=== PATIENT | female | born 1965 | race Caucasian/White ===

== ENCOUNTER 2020-06-20 09:26 | Outpatient (REF) | payer OTHER, SELFPAY ==
--- NOTE | 2020-06-20 09:31 | MM_ITS ---
EXAMINATION: MM SCREENING DIGITAL BREAST TOMOSYNTHESIS, BILATERAL CLINICAL INFORMATION: Screening. Asymptomatic. The lifetime risk of breast cancer based on the Tyrer-Cuzick Model is 7%. COMPARISON: Mammography: 06/11/2019, 05/31/2018 TECHNIQUE: Digital breast tomosynthesis is performed in both the craniocaudal and mediolateral oblique views along with computer-aided detection (CAD). Synthesized 2D images are generated from the tomosynthesis. Additional exaggerated right CC view is provided. FINDINGS: There are scattered areas of fibroglandular density (ACR BI-RADS breast composition Category b). There are no significant masses, abnormal calcifications, or other abnormalities. The axilla and skin contours are unremarkable. No significant changes from prior studies. MM/MM tomosynthesis screening BI IMPRESSION: No mammographic evidence of malignancy. ASSESSMENT: BI-RADS 1: Negative RECOMMENDATION: Routine annual mammography screening. This patient's information was entered into a reminder system with a target due date for their next mammogram.
== END 2020-06-20 09:27 | disposition home or self-care (01) ==
LOC: HO.MAMMO 09:26
PROVIDERS: PCP Internal Medicine; Visit Provider Internal Medicine
DX: Z12.31 Encounter for screening mammogram for malignant neoplasm of breast (principal)
CPT/HCPCS: 77063; 77067

== ENCOUNTER 2020-08-21 10:10 | Emergency (ER) | payer OTHER, SELFPAY ==
--- NOTE | 2020-08-21 11:10 | ECG_ITS ---
Test Reason : CHEST PRESSURE Blood Pressure : / mmHG Vent. Rate : 060 BPM Atrial Rate : 060 BPM P-R Int : 196 ms QRS Dur : 090 ms QT Int : 442 ms P-R-T Axes : 070 058 065 degrees QTc Int : 442 ms Normal sinus rhythm Possible Left atrial enlargement Borderline ECG When compared with ECG of 13-MAY-2018 13:54, No significant change was found Referred By: Marily Lindsey Electronically Signed By:YASMINE OSEGUERA MD
--- NOTE | 2020-08-21 11:11 | XR_ITS ---
EXAMINATION: XR CHEST CLINICAL INFORMATION: Chest pain COMPARISON: January 09, 2018 TECHNIQUE: AP portable view of the chest was obtained. FINDINGS: No significant abnormality is noted involving the heart, lungs, mediastinum, bony thorax or soft tissues. XR/XR chest 1V IMPRESSION: No acute disease.
--- NOTE | 2020-08-21 11:13 | ED.URI ---
HPI - URI/Sore Throat General Chief Complaint: Upper Respiratory Symptoms Stated Complaint: covid symptoms Time Seen by Provider: 08/21/20 10:58 Source: patient Mode of arrival: ambulatory Limitations: no limitations History of Present Illness HPI Narrative: 54-yo female with past medical history of hypothyroidism, PTSD, anxiety here with complaints of chest heaviness for the last 24 hours. She tells me for the last 7 days she has had runny nose and headache and malaise. She has had no cough. She has had some chills and tactile temps which are intermittent. No cough or shortness of breath or leg pain or swelling. Chest heaviness which is constant worsened with deep breathing. MD elicited complaint: rhinorrhea Onset (ago): day(s) Consistency: intermittent Severity: mild Able to tolerate fluids by mouth: Yes Exacerbating factors: nothing Relieving factors: nothing Associated symptoms: chills (tactile temps), headache and chest pain Treatments prior to arrival: none Related Data Allergies Allergy/AdvReac Type Severity Reaction Status Date / Time blue dye [BLUE DYE] Allergy Unknown BURNING Unverified 04/24/20 16:12 EYE LIDS, TINGLING LIPS lamotrigine [LAMOTRIGINE] Allergy Unknown RASH Unverified 04/24/20 16:12 Latex Gloves Allergy Unknown Uncoded 12/10/16 00:00 Review of Systems Review of Systems: Yes all other systems are reviewed and are negative Constitutional: Constitutional: Reports no additional constitutional complaints, Denies body ache(s), Denies chills, Denies fever(s), Reports headache(s) and Denies weakness Eyes: Eyes: Reports no additional eye complaints and Denies change in vision ENT: Reports system reviewed and no additional complaints, except as documented, Denies dizziness, Reports headache(s), Denies nasal congestion, Reports nasal discharge and Denies neck pain Cardiovascular: Cardiovascular: Reports no additional cardiovascular complaints, Reports chest pain, Denies leg edema and Denies dyspnea Respiratory: Respiratory: Reports no additional respiratory complaints, Denies cough and Denies dyspnea Gastrointestinal: Gastrointestinal: Reports no additional gastrointestinal complaints, Denies abdominal pain, Denies diarrhea, Denies nausea and Denies vomiting Genitourinary: Genitourinary: Reports no additional female genitourinary complaints and Denies urinary incontinence Musculoskeletal: Musculoskeletal: Reports no additional musculoskeletal complaints, Denies back pain, Denies arthralgias, Denies joint swelling, Denies neck pain, Denies numbness and Denies tingling Integumentary/Breasts: Skin/Breast: Reports system reviewed and no additional complaints, except as docu and Denies rash Neurologic: Reports system reviewed and no additional complaints, except as documented, Denies Abnormal speech present, Denies dizziness, Reports headache(s), Denies numbness, Denies tingling and Denies weakness PMFSH Past Medical History Attestation statement: The following information was validated with the patient. Source: old records reviewed and nursing notes reviewed Social History Social History Alcohol intake: never Smoked in Last 30 Days: No Use of substances other than those prescribed or required for medical reasons: No Advance Directives: No Advance Directives Information Provided: No Physical Exam Vital Signs: Vital Signs: Last Vital Signs Temp 98.4 F 08/21/20 13:17 Pulse 54 08/21/20 13:17 Resp 22 H 08/21/20 13:17 BP 124/82 08/21/20 13:17 Pulse Ox 100 08/21/20 13:17 Body Mass Index 24.0 Const: General: cooperative, healthy appearing, comfortable and no acute distress Orientation/consciousness: patient oriented x3 Limitations: no limitations HENMT: Head: Yes normal to inspection Ears: hearing grossly normal bilaterally General nose exam: Normal external nose present Face and sinus: Yes normal facial exam Mouth: Normal oral and palatal mucosa present Throat: Yes posterior oropharynx normal Eyes: General: appearance normal, both eyes and all related structures Pupils: Equal, round and reactive pupils present Neck: Neck: Yes normal visual inspection Chest: Other: Central chest tender to palpate. Worsened with deep breathing, movement Chest palpation & inspection: normal inspection of the chest Resp: Effort & Inspection: normal respiratory effort Auscultation: clear to auscultation bilaterally Cardio: Rate: regular rate Rhythm: regular rhythm Peripheral pulses: Peripheral pulses 2+ throughout GI: Inspection: Yes normal to inspection Palpation (GI): Soft to palpation and nontender Auscultation: normal bowel sounds Back/Spine/Pelvis: Thoracic/Lumbar Spine: thoracic and lumbar spine normal to inspection Skin: General skin exam: no rashes or lesions noted Neuro: General: patient oriented x3, no focal motor deficits and normal sensation to monofilament Cranial nerves: Yes Equal, round and reactive pupils present Cognition (Neuro): normal cognition Speech: No Abnormal speech present Gait exam (Neuro): Normal gait present Motor exam (neuro): 5/5 motor strength present throughout Extrem: General: Yes normal to inspection Course Course Course Narrative: 54-year-old female here with rhinorrhea, headache x1 week now with chest tightness and heaviness for the last 24 hours. On exam the pain is worsened with deep breathing, movement and palpation. No cough or shortness of breath. Stable vital signs. Will check EKG, chest x-ray, labs including troponin and COVID testing. 1250-labs including troponin unremarkable. EKG shows no new changes. Chest x-ray shows no abnormality. D-dimer elevated will check CTA to r/o PE. 1500-CTA shows no PE. No evidence of aortic aneurysm. A few scattered nonspecific pulmonary nodules. Centrally more the right upper lobe and some mild atelectasis. Discussed findings with the patient. She was given a copy of her report to take home. She is feeling improved on discharge. Likely viral syndrome. Reviewed worrisome signs and symptoms and when to return to the emergency department. Comfortable discharge home. MDM - URI/Sore Throat MDM Narrative Medical decision making narrative: ACS, pna, pe viral syndrome, MS pain Less likely ACS with atypical symptoms, symptoms greater than 24 hours, EKG with no ischemic changes, negative troponin. Less likely pneumonia or PE with negative CTA. Medical Records Attestation: I reviewed the patient's medical records. Lab Data Attestation: I reviewed the patient's lab results. Result diagrams: 08/21/20 11:25 08/21/20 11:25 Labs: Lab Results 08/21/20 08/21/20 08/21/20 Range/Units 11:25 11:25 11:25 WBC 5.8 (4.8-10.8) X10*3/uL RBC 3.69 L (4.20-5.50) X10*6/uL Hgb 12.4 (12.0-16.0) g/dl Hct 36.7 L (37-47) % MCV 99.5 H (80-98) fL MCH 33.6 H (27.0-33.0) pg MCHC 33.8 (31.0-35.0) g/dl RDW 13.2 (11.0-16.0) % Plt Count 223 (160-400) X10*3/uL MPV 9.9 (9.4-12.3) fL Immature Gran % (Auto) 0.2 (0.0-0.4) % Neut % (Auto) 60.0 (45-73) % Lymph % (Auto) 34.1 (20-40) % [place] % (Auto) 4.3 (2-11) % Eos % (Auto) 0.9 (0-4) % Baso % (Auto) 0.5 (0-2) % Lymph # (Auto) 2.0 (1.2-4.9) X10*3/uL [place] # (Auto) 0.3 (0.1-1.2) X10*3/uL Eos # (Auto) 0.1 (0.0-0.4) X10*3/uL Baso # (Auto) 0.0 (0.0-0.2) X10*3/uL Abs Immat Gran (auto) 0.01 (0.00-0.03) X10*3/uL Absolute Neuts (auto) 3.5 (2.0-8.3) X10*3/uL Absolute Nucleated RBC 0.000 (0.0-0.012) X10*3/uL Nucleated RBC % (auto) 0.0 (0.0-0.2) /100WBC PT (10.8-13.0) SEC INR (0.9-1.1) D-Dimer NG/ML Sodium 139 (135-145) mmol/L Potassium 4.0 (3.3-5.1) mmol/l Chloride 103 (96-108) mmol/L Carbon Dioxide 30 H (22-29) mmol/L Anion Gap 10 L (12-20) BUN 27 H (9-16) mg/dL Creatinine 0.76 (0.5-1.4) mg/dL Estim Creat Clear Calc 73.0 Estimated GFR > 60 Random Glucose 90 (60-115) mg/dL Calcium 9.0 (8.4-10.2) mg/dL Magnesium 2.4 (1.6-2.6) mg/dL Total Bilirubin 0.3 (0.0-1.0) mg/dL Direct Bilirubin < 0.2 (0.0-0.5) mg/dL AST 23 (5-31) U/L ALT 21 (0-31) U/L Alkaline Phosphatase 51 (39-117) U/L Troponin I High Sens < 3.5 (<3.5-17.0) ng/L Total Protein 6.6 (6.5-8.0) g/dL Albumin 4.1 (3.5-5.0) g/dL COVID-19 ([facility]ILAN) (Negative) COVID-19 Clin Com 08/21/20 08/21/20 Range/Units 11:25 11:25 WBC (4.8-10.8) X10*3/uL RBC (4.20-5.50) X10*6/uL Hgb (12.0-16.0) g/dl Hct (37-47) % MCV (80-98) fL MCH (27.0-33.0) pg MCHC (31.0-35.0) g/dl RDW (11.0-16.0) % Plt Count (160-400) X10*3/uL MPV (9.4-12.3) fL Immature Gran % (Auto) (0.0-0.4) % Neut % (Auto) (45-73) % Lymph % (Auto) (20-40) % [place] % (Auto) (2-11) % Eos % (Auto) (0-4) % Baso % (Auto) (0-2) % Lymph # (Auto) (1.2-4.9) X10*3/uL [place] # (Auto) (0.1-1.2) X10*3/uL Eos # (Auto) (0.0-0.4) X10*3/uL Baso # (Auto) (0.0-0.2) X10*3/uL Abs Immat Gran (auto) (0.00-0.03) X10*3/uL Absolute Neuts (auto) (2.0-8.3) X10*3/uL Absolute Nucleated RBC (0.0-0.012) X10*3/uL Nucleated RBC % (auto) (0.0-0.2) /100WBC PT 11.7 (10.8-13.0) SEC INR 1.0 (0.9-1.1) D-Dimer 297 NG/ML Sodium (135-145) mmol/L Potassium (3.3-5.1) mmol/l Chloride (96-108) mmol/L Carbon Dioxide (22-29) mmol/L Anion Gap (12-20) BUN (9-16) mg/dL Creatinine (0.5-1.4) mg/dL Estim Creat Clear Calc Estimated GFR Random Glucose (60-115) mg/dL Calcium (8.4-10.2) mg/dL Magnesium (1.6-2.6) mg/dL Total Bilirubin (0.0-1.0) mg/dL Direct Bilirubin (0.0-0.5) mg/dL AST (5-31) U/L ALT (0-31) U/L Alkaline Phosphatase (39-117) U/L Troponin I High Sens (<3.5-17.0) ng/L Total Protein (6.5-8.0) g/dL Albumin (3.5-5.0) g/dL COVID-19 ([facility]ILAN) Negative (Negative) COVID-19 Clin Com See Note Imaging Data Chest x-ray: Attestation: I personally reviewed and interpreted this imaging study as follows: Radiologist's impression: [place] [id number] XRay Report Signed Patient: Sage Zhang#: [id number] : 1965Acct:[id number] Age/Sex: 54 / FADM Date: 08/21/20 Loc: .ED Attending Dr: Ordering Physician: MAGALY LESTER NP Date of Service: 08/21/20 Procedure(s): XR chest 1V Accession Number(s): [id number] cc: MAGALY LESTER NP~ EXAMINATION: XR CHEST CLINICAL INFORMATION: Chest pain COMPARISON: January 09, 2018 TECHNIQUE: AP portable view of the chest was obtained. FINDINGS: No significant abnormality is noted involving the heart, lungs, mediastinum, bony thorax or soft tissues. XR/XR chest 1V IMPRESSION: No acute disease. CTA chest: Attestation: I personally reviewed and interpreted this imaging study as follows: Radiologist's impression: EXAMINATION: CT ANGIOGRAM OF THE CHEST WITH AND WITHOUT CONTRAST (CT PULMONARY ANGIOGRAM FOR PE) CLINICAL INFORMATION: Reason for Exam SOB, CP, elevated d dimer, r/o pe COMPARISON: None TECHNIQUE: Prior to contrast administration, noncontrast localization images were obtained. Subsequently, multidetector volumetric imaging was performed from the thoracic inlet to below the diaphragms following the administration of 80 mL Omnipaque 350 intravenous contrast. No contrast reaction reported Sagittal, coronal, and MIP oblique sagittal reformatted images were obtained on the CT workstation, uploaded to PACS, and reviewed. This CT examination was performed using dose optimization techniques as appropriate, variously including the following: *Automated exposure control *Adjustment of mA and/or kV according to patient size (this includes techniques or standardized protocols for targeted exams where dose is matched to indication/reason for exam; i.e. extremities or head) *Use of iterative reconstruction technique Total exam dose-length product 240 mGy-cm FINDINGS: QUALITY OF STUDY/CONTRAST BOLUS: Satisfactory. PULMONARY ARTERIES: No central or segmental pulmonary emboli. THORACIC AORTA: No aneurysm or dissection. LUNG: The lungs are well-expanded without acute pneumonic process. There are a few scattered pulmonary nodules. A 3 mm nodule right upper lobe axial image 24/5, 2 nodule right upper lobe posterior segment image 16/5 3 minute nodule right upper lobe axial image 18/5 and several 2 mm nodules right upper lobe axial image 17/5. There is dependent bibasilar patchy haziness likely atelectasis. PLEURA: No pleural effusion or pneumothorax. MEDIASTINUM: The heart size and the great vessels are normal caliber. Central trachea and the bronchi widely patent. The thyroid lobes are symmetrical and normal. No evidence of septal bowing or right heart strain. CHEST WALL/AXILLA: No axillary or internal mammary lymphadenopathy. OSSEOUS STRUCTURES: No lytic or sclerotic process seen. There is mild ventral spondylosis. UPPER ABDOMEN: Unremarkable. No reflux of contrast into the hepatic veins to suggest elevated right heart pressures. CT/CT angio chest PE protocol IMPRESSION: No evidence of PE. No evidence of aortic aneurysm. Lungs are expanded with a few scattered nonspecific pulmonary nodules essentially more the right upper lobe. Mild patchy haziness in both lung bases likely atelectasis or underlying inflammatory changes. No abnormal mediastinal exit lymphadenopathy. VTE: Negative. ECG Data Attestation: I personally reviewed and interpreted this ECG as follows: ECG interpretation date: 08/21/20 ECG interpretation time: 11:17 Interpretation: Normal sinus rhythm with a rate of 60, normal CA, normal QRS, normal QT. Q-wave noted in leads V1 V2 and V3 which is unchanged from previous May 2018 Discharge Plan Discharge Clinical Impression: Viral infection Patient Disposition: Home, Self-Care Instructions: Viral Syndrome (ED) Additional Instructions: Your CT shows several pulmonary nodules. You were given a copy of this report. Will refer you to pulmonology to follow up Increase fluids, rest Get plenty of rest Referrals: Jose Cruz Avery MD [Physician] - 2 days Interventions: ED Discharge Assessment Last Done: 08/21/20 15:32 Discharge Date/Time: 08/21/20 15:33
[2020-08-21 11:17] VITALS: BP 115/92; PULSE 56; RESP 16; TEMP 36.8; O2SAT 100; BMI 24.0
[2020-08-21 11:28] VITALS: PULSE 60; O2SAT 100
[2020-08-21 11:29] LABS: MANUAL DIFF FLAG NO
[2020-08-21 11:34] LABS: Basophils Percent Auto 0.5 % (0-2); Eosinophils Absolute Auto 0.1 X10*3/uL (0.0-0.4); Eosinophils Percent Auto 0.9 % (0-4); Hematocrit 36.7 % (37-47); Hemoglobin 12.4 g/dl (12.0-16.0); Imm Gran Abs Auto 0.01 X10*3/uL (0.00-0.03); Imm Gran Pct Auto 0.2 % (0.0-0.4); Lymphocytes Percent Auto 34.1 % (20-40); Mean Corpuscular HGB Conc 33.8 g/dl (31.0-35.0); Mean Corpuscular Hemoglobin 33.6 pg (27.0-33.0); Mean Corpuscular Volume 99.5 fL (80-98); Mean Platelet Volume 9.9 fL (9.4-12.3); Monocytes Absolute Auto 0.3 X10*3/uL (0.1-1.2); Monocytes Percent Auto 4.3 % (2-11); Neutrophils Absolute Auto 3.5 X10*3/uL (2.0-8.3); Platelet Count 223 X10*3/uL (160-400); Red Blood Count 3.69 X10*6/uL (4.20-5.50); Red Cell Distribution Width 13.2 % (11.0-16.0); White Blood Count 5.8 X10*3/uL (4.8-10.8)
[2020-08-21 11:39] LABS: Prothrombin Time 11.7 SEC (10.8-13.0)
[2020-08-21 11:59] LABS: COVID-19 Test Negative (Negative); IDNOW Serial# 9DD0AD1C
[2020-08-21 12:05] LABS: Alanine Aminotransferase 21 U/L (0-31); Albumin Level 4.1 g/dL (3.5-5.0); Alkaline Phosphatase 51 U/L (39-117); Anion Gap 10 (12-20); Aspartate Amino Transferase 23 U/L (5-31); Bilirubin Direct < 0.2 mg/dL (0.0-0.5); Bilirubin Total 0.3 mg/dL (0.0-1.0); Blood Urea Nitrogen 27 mg/dL (9-16); Carbon Dioxide 30 mmol/L (22-29); Chloride 103 mmol/L (96-108); Estimated Glomerular Filt Rate > 60; Glucose Random 90 mg/dL (60-115); Magnesium 2.4 mg/dL (1.6-2.6); Sodium 139 mmol/L (135-145); Total Protein 6.6 g/dL (6.5-8.0)
[2020-08-21 12:10] LABS: Troponin-I High Sensitivity < 3.5 ng/L (<3.5-17.0)
[2020-08-21 12:28] LABS: D Dimer 297 NG/ML
--- NOTE | 2020-08-21 12:52 | CT_ITS ---
EXAMINATION: CT ANGIOGRAM OF THE CHEST WITH AND WITHOUT CONTRAST (CT PULMONARY ANGIOGRAM FOR PE) CLINICAL INFORMATION: Reason for Exam SOB, CP, elevated d dimer, r/o pe COMPARISON: None TECHNIQUE: Prior to contrast administration, noncontrast localization images were obtained. Subsequently, multidetector volumetric imaging was performed from the thoracic inlet to below the diaphragms following the administration of 80 mL Omnipaque 350 intravenous contrast. No contrast reaction reported Sagittal, coronal, and MIP oblique sagittal reformatted images were obtained on the CT workstation, uploaded to PACS, and reviewed. This CT examination was performed using dose optimization techniques as appropriate, variously including the following: *Automated exposure control *Adjustment of mA and/or kV according to patient size (this includes techniques or standardized protocols for targeted exams where dose is matched to indication/reason for exam; i.e. extremities or head) *Use of iterative reconstruction technique Total exam dose-length product 240 mGy-cm FINDINGS: QUALITY OF STUDY/CONTRAST BOLUS: Satisfactory. PULMONARY ARTERIES: No central or segmental pulmonary emboli. THORACIC AORTA: No aneurysm or dissection. LUNG: The lungs are well-expanded without acute pneumonic process. There are a few scattered pulmonary nodules. A 3 mm nodule right upper lobe axial image 24/5, 2 nodule right upper lobe posterior segment image 16/5 3 minute nodule right upper lobe axial image 18/5 and several 2 mm nodules right upper lobe axial image 17/5. There is dependent bibasilar patchy haziness likely atelectasis. PLEURA: No pleural effusion or pneumothorax. MEDIASTINUM: The heart size and the great vessels are normal caliber. Central trachea and the bronchi widely patent. The thyroid lobes are symmetrical and normal. No evidence of septal bowing or right heart strain. CHEST WALL/AXILLA: No axillary or internal mammary lymphadenopathy. OSSEOUS STRUCTURES: No lytic or sclerotic process seen. There is mild ventral spondylosis. UPPER ABDOMEN: Unremarkable. No reflux of contrast into the hepatic veins to suggest elevated right heart pressures. CT/CT angio chest PE protocol IMPRESSION: No evidence of PE. No evidence of aortic aneurysm. Lungs are expanded with a few scattered nonspecific pulmonary nodules essentially more the right upper lobe. Mild patchy haziness in both lung bases likely atelectasis or underlying inflammatory changes. No abnormal mediastinal exit lymphadenopathy. VTE: Negative.
[2020-08-21 13:17] VITALS: BP 124/82; PULSE 54; RESP 22; TEMP 36.9; O2SAT 100
[2020-08-21] MEDS: iohexoL 350 MG/ML 100 ML INFUS..BTL IV (13:58)
== END 2020-08-21 15:33 | disposition home or self-care (01) ==
PROVIDERS: Nurse Practitioner Family; Emergency Provider Emergency Medicine Emergency Medical Services; PCP Obstetrics & Gynecology
DX: B34.9 Viral infection, unspecified (principal); R51.9 Headache, unspecified; R07.9 Chest pain, unspecified; Z20.822 Contact with and (suspected) exposure to COVID-19
CPT/HCPCS: 36415; 71045; 71275; 80048; 80076; 83735; 84484; 85025; 85379; 85610; 87635; 93005; 99284; 99285; Q9967

== ENCOUNTER → 2020-09-01 14:53 | Outpatient (BNVA) | payer OTHER, SELFPAY | PROVIDERS: PCP Internal Medicine; Visit Provider Internal Medicine | DX: F19.10 Other psychoactive substance abuse, uncomplicated (principal); R91.1 Solitary pulmonary nodule; F17.200 Nicotine dependence, unspecified, uncomplicated | CPT/HCPCS: 99202 ==

== ENCOUNTER 2021-06-29 11:42 | Outpatient (REF) | payer OTHER, SELFPAY ==
--- NOTE | ~2021-06-29 | MM_ITS ---
EXAMINATION: MM SCREENING DIGITAL BREAST TOMOSYNTHESIS, BILATERAL CLINICAL INFORMATION: Screening. Asymptomatic. The lifetime risk of breast cancer based on the Tyrer-Cuzick Model is 7%. COMPARISON: Mammography: 06/20/2020, 06/11/2019, 05/31/2018 TECHNIQUE: Digital breast tomosynthesis is performed in both the craniocaudal and mediolateral oblique views along with computer-aided detection (CAD). Synthesized 2D images are generated from the tomosynthesis. Additional exaggerated left CC view is provided. FINDINGS: There are scattered areas of fibroglandular density (ACR BI-RADS breast composition Category b). There are no significant masses, abnormal calcifications, or other abnormalities. MM/MM tomosynthesis screening BI IMPRESSION: No mammographic evidence of malignancy. ASSESSMENT: BI-RADS 1: Negative RECOMMENDATION: Routine annual mammography screening. This patient's information was entered into a reminder system with a target due date for their next mammogram.
== END 2021-06-29 11:43 | disposition home or self-care (01) ==
LOC: HO.MAMMO 11:42
PROVIDERS: PCP Family Medicine; Visit Provider Family Medicine
DX: Z12.31 Encounter for screening mammogram for malignant neoplasm of breast (principal)
CPT/HCPCS: 77063; 77067

== ENCOUNTER → 2021-10-28 09:28 | Outpatient (BNVA) | payer OTHER, SELFPAY | PROVIDERS: PCP Internal Medicine; Visit Provider Internal Medicine | DX: R91.1 Solitary pulmonary nodule (principal); F17.200 Nicotine dependence, unspecified, uncomplicated; F19.10 Other psychoactive substance abuse, uncomplicated | CPT/HCPCS: 99212 ==

== ENCOUNTER 2023-01-21 16:49 | Emergency (ER) | payer OTHER, SELFPAY ==
--- NOTE | ~2023-01-21 | XR_ITS ---
EXAMINATION: XR ABDOMEN COMPLETE CLINICAL INDICATION: Reason for Exam eval stool burden COMPARISON: KUB 09/02/2007 TECHNIQUE: AP view of the abdomen. FINDINGS: Lines or devices: None. Nonobstructive bowel gas pattern. Large predominantly rectosigmoid colonic stool burden. Supine technique limits evaluation for extraluminal air although no secondary findings are appreciated. Calcified phleboliths in the pelvis. Lung bases appear clear. XR/XR KUB IMPRESSION: Nonobstructive bowel gas pattern. Large predominantly rectosigmoid colonic stool burden.
--- NOTE | 2023-01-21 16:55 | ED_ITS ---
HPI - Abdominal Pain General Chief Complaint: Abdominal Pain Stated Complaint: Constipation Time Seen by Provider: 01/21/23 19:27 Source: patient and RN notes reviewed Mode of arrival: ambulatory Limitations: no limitations History of Present Illness HPI narrative: This is a 57-year-old female, with a past medical history of hypothyroidism, PTSD, bipolar disorder, migraines, former cocaine abuse, recent decompression of L4 due to spinal stenosis, and anxiety, presenting to the emergency department today for constipation. Patient reports that she has been unable to fully move her bowels for the last week. She reports that she passed a small hard stool on Tuesday but otherwise has not had a bowel movement. Patient reports that she has had decreased appetite as every time she eats she feels as though she has to have a bowel movement is unable to do so. Patient denies any fevers, chills, or vomiting. She has a history of constipation believes that this is attributed to Amovig injections. Has not been on narcotic medication in 2 weeks. She has tried ?everything and anything , including stool softeners, MiraLax and suppositories without any relief. Denies any other complaints or concerns at th is time MD elicited complaint: abdominal pain Pertinent past history: constipation Onset (ago): week(s) Pain Consistency: constant Location: none Severity: moderate Quality: cramping, aching and fullness Radiation: none Migration to: no migration Exacerbating factors: eating Relieving factors: nothing Context: history of similar episodes Associated symptoms: constipation Related Data Allergies Allergy/AdvReac Type Severity Reaction Status Date / Time blue dye [BLUE DYE] Allergy Unknown BURNING Verified 10/28/21 09:55 EYE LIDS, TINGLING LIPS lamotrigine [LAMOTRIGINE] Allergy Unknown RASH Verified 10/28/21 09:55 Latex Gloves Allergy Unknown Unknown Uncoded 10/28/21 09:55 Review of Systems Review of Systems Constitutional: No Weight loss, No Fever, No Chills, No Night Sweats, No Fatigue, No Malaise ENT/Mouth: No Hearing loss, No Ear Pain, No Nasal Congestion, No Sinus Pain, No Hoarseness, No sore throat, No Rhinorrhea, No Swallowing Difficulty Eyes: No Eye Pain, No Swelling, No Redness, No Foreign Body, No Discharge, No Vision Changes Cardiovascular: No Chest Pain, No SOB, No Dyspnea on Exertion, No Orthopnea, No Edema, No Palpitations Respiratory: No Cough, No Sputum, No Wheezing, No Smoke Exposure, No Dyspnea Gastrointestinal: No Nausea, No Vomiting, No Diarrhea, + Constipation, No Abdominal pain, No Hematochezia, No Melena Genitourinary: No irregular bleeding, No Dysuria, No Urinary Frequency, No Hematuria, No Urinary Incontinence/retention, No Urgency, No Flank Pain, No Urinary Flow Changes, No Hesitancy Musculoskeletal: No joint pain, No Myalgias, No Joint Swelling Skin: No Skin Lesions, No rash Neuro: No Weakness, No Numbness, No Paresthesias, No Loss of Consciousness, No Dizziness, No Headache Psych: No Anxiety/Panic, No Depression, No SI/HI/AH/VH, No Social Issues, Heme/Lymph: No Bruising, No Bleeding,No Lymphadenopathy Endocrine: No Polyuria, No Polydipsia, No Temperature Intolerance Yes all other systems are reviewed and are negative Constitutional: Reports as per [facility] Past Medical History Medical History PTSD (post-traumatic stress disorder) Pulmonary nodule seen on imaging study Smoker Substance abuse Substance abuse Social History Social History Alcohol intake: never Patient Tobacco Use Status: Current someday Tobacco user Smoked in Last 30 Days: Yes Use of substances other than those prescribed or required for medical reasons: No Substance Use Type: Crack/Cocaine and Former Substance User Any prior treatment program specific to substance use: No Advance Directives: No Advance Directives Information Provided: No Patient : No Physical Exam ED Vital Signs: Vital Signs - 24 hr 01/21/23 16:56 01/21/23 19:17 01/21/23 21:43 Temperature 98.1 F 98.4 F Pulse Rate 74 58 58 Respiratory Rate 18 19 16 Blood Pressure 183/129 H 142/94 H 148/94 H Pulse Oximetry 100 97 98 Oxygen Delivery Method Room Air Room Air Room Air BMI result Body Mass Index 24.0 Const General: cooperative, comfortable and no acute distress Orientation/consciousness: patient oriented x3 Limitations: no limitations HENMT Head: Yes normal to inspection, Yes normocephalic and Yes atraumatic Ears: hearing grossly normal bilaterally General nose exam: Normal external nose present Face and sinus: Yes normal facial exam Mouth: Normal oral and palatal mucosa present, oropharynx normal and moist mucous membranes Throat: Yes posterior oropharynx normal Eyes General: appearance normal, both eyes and all related structures Eyelids: Yes eyelids normal Conjunctivae: conjunctivae normal Sclerae: sclerae normal Pupils: Equal, round and reactive pupils present EOM: EOMs intact bilaterally Neck Neck: Yes normal visual inspection, Yes full ROM and Yes no lymphadenopathy Lymphatic: no lymphadenopathy noted Chest Chest palpation & inspection: normal inspection of the chest Resp Effort & Inspection: normal respiratory effort and able to speak in complete sentences Auscultation: clear to auscultation bilaterally, no crackles, no rales, no rhonchi and no wheezes Cardio Rate: regular rate Rhythm: regular rhythm Heart sounds: S1 normal heart sound present and S2 normal heart sound present GI Other: Abdomen is mildly distended and firm, normoactive bowel sounds. Diffusely tender throughout abdomen. Rectal examination performed good rectal tone, light brown stool appreciated, scant soft stool noted at the rectum. Budget Engineer present throughout entire examination Inspection: Yes normal to inspection Auscultation: normal bowel sounds Rectal Exam - Female: normal sphincter tone and No Abnormal stool present Skin General skin exam: no rashes or lesions noted Trauma: no lacerations or abrasions Wounds: no wounds Neuro General: patient oriented x3 and moves all extremities Cranial nerves: Yes Equal, round and reactive pupils present Extrem General: Yes normal to inspection Right upper extremity: normal to inspection Left upper extremity: normal to inspection Right lower extremity: normal to inspection Left lower extremity: normal to inspection Course Course Course Narrative: This is a rapid medical exam. Deferred additional HPI, ROS, PE to primary provider. 57 yo female with past medical history of hypothyroidism, PTSD, a nxiety, bipolar disorder, migraines, former cocaine use, recent decompression of L4 d/t spinal stenosis here with complaints of constipation (senna, dulocolax, miralax, magnesium citrate). C/o abdominal pain/bloating/decreased oral intake. No vomiting. Only has had one dose of oxycodone in the last week, prior to that none for 2 weeks. Will check KUB Hypertensive in triage Medical Decision Making Medical Decision Making MDM Narrative: 57-year-old female presenting to the emergency department for evaluation constipation for 1 week. She has been using many [id number] remedies without any relief. On examination, patient mildly hypertensive at 183/129, patient is afebrile. Abdomen mildly distended soft slightly firm with diffuse tenderness throughout. KUB abdomen showing large predominantly rectosigmoid colonic stool burden. Rectal exam without any part in stool at the distal end. Patient has good rectal tone. Attempted digital the compaction without much relief, soapsuds enema administered rectally. Patient with 2 very large bowel movements. Patient is feeling significantly better had any abdominal pain tenderness in believes that she was able to fully evacuate stool. Patient requesting to be discharged. I educated the importance of staying well hydrated and taking laxatives and stool softeners over the next days for prevention. Patient understands and agrees with plan. Given return precautions. Patient understands and agrees with plan Differential Diagnosis Differential Diagnoses: The differential diagnosis associated with the presentation includes Constipation, bowel obstruction, gastritis, gastroenteritis Radiology Impression Discussion of test interpretation with radiology: I have reviewed the radiologist's reading. Radiologist Impression: CLINICAL INDICATION: Reason for Exam eval stool burden COMPARISON: KUB 09/02/2007 TECHNIQUE: AP view of the abdomen. FINDINGS: Lines or devices: None. Nonobstructive bowel gas pattern. Large predominantly rectosigmoid colonic stool burden. Supine technique limits evaluation for extraluminal air although no secondary findings are appreciated. Calcified phleboliths in the pelvis. Lung bases appear clear. XR/XR KUB IMPRESSION: Nonobstructive bowel gas pattern. Large predominantly rectosigmoid colonic stool burden.? ? Dictated By: Kacy Hernandez MD Signed By: <Electronically signed by Kacy Hernandez MD in [place]> 01/21/23 1733 DD/ 1712 TD/TT:? [employer] Worker: Discharge Plan Discharge Clinical Impression: Constipation Patient Disposition: Home, Self-Care Instructions: Constipation (ED) Additional Instructions: Please drink plenty of fluids get plenty of rest. A diet high in fiber will help. If any new or worsening symptoms occur please return for re-evaluation. Follow-up with your primary care physician. Interventions: ED Discharge Assessment Last Done: 01/21/23 23:04 Discharge Date/Time: 01/21/23 23:09
[2023-01-21 16:56] VITALS: BP 183/129; PULSE 74; RESP 18; TEMP 36.7; O2SAT 100; BMI 24.0
[2023-01-21 19:17] VITALS: BP 142/94; PULSE 58; RESP 19; O2SAT 97
--- NOTE | 2023-01-21 20:07 | PC.NURSE ---
patient in bed with eyes open patient vitals are elevated at this time patient stated she is in pain due to being constipated 01/15 patient will continue to be monitored for safety
[2023-01-21 21:43] VITALS: BP 148/94; PULSE 58; RESP 16; TEMP 36.9; O2SAT 98
--- NOTE | 2023-01-21 21:53 | PC.NURSE ---
patient in bed with eyes open patient was administered a soap david enema patient vitals are elevated due to patient is in discomfort patient will continue to be monitored for further care safety will continue to be maintained
--- NOTE | 2023-01-21 23:02 | PC.NURSE ---
patient in the process of being discharged patient is aware
== END 2023-01-21 23:09 | disposition home or self-care (01) ==
PROVIDERS: Emergency Provider Student in an Organized Health Care Education/Training Program; PCP Internal Medicine
DX: K59.00 Constipation, unspecified (principal); F17.210 Nicotine dependence, cigarettes, uncomplicated; Z71.6 Tobacco abuse counseling; F14.10 Cocaine abuse, uncomplicated
CPT/HCPCS: 74018; 99283; 99284

== ENCOUNTER 2023-10-03 08:27 | Outpatient (REF) | payer OTHER, SELFPAY | END 2023-10-03 08:28 | disposition home or self-care (01) | LOC: HO.MAMMO 08:27 | PROVIDERS: PCP Nurse Practitioner Family; Visit Provider Nurse Practitioner Family | DX: Z12.31 Encounter for screening mammogram for malignant neoplasm of breast (principal) | CPT/HCPCS: 77063; 77067 ==

== ENCOUNTER → 2023-10-03 08:45 | Outpatient (BNV) | payer OTHER, SELFPAY | PROVIDERS: PCP Nurse Practitioner Family; Visit Provider Radiology Diagnostic Radiology | DX: Z12.31 Encounter for screening mammogram for malignant neoplasm of breast (principal) | CPT/HCPCS: 77063; 77067 ==